=== PATIENT | female | born 1985 | race African-American/Black ===

== ENCOUNTER 2022-12-03 02:02 | Emergency (ER) | payer BC ==
[~2022-12-03] VITALS: Ht 157.5 cm; Wt 76.0 kg
[2022-12-03 02:03] VITALS: BP 128/76
== END 2022-12-03 03:21 | disposition left against medical advice (07) ==
LOC: ER 02:21
DX: J02.9 Acute pharyngitis, unspecified (principal); Z53.21 Procedure and treatment not carried out due to patient leaving prior to being seen by health care provider
CPT/HCPCS: 99281